=== PATIENT | female | born 1955 | race Caucasian/White ===

== ENCOUNTER 2021-01-17 10:18 | Emergency (ER) | payer MEDICARE, OTHER ==
[~2021-01-17] VITALS: Ht 157.5 cm; Wt 49.0 kg
[2021-01-17] MEDS ORDERED: OXYCODONE-ACET1 EAC3 PO (11:37)
[2021-01-17] MEDS ORDERED: AMOX TR-K CLV1 EAC1 PO (11:37)
[2021-01-17] MEDS ORDERED: BETAMETHASONE D15 G2 TOP (11:37)
[2021-01-17] MEDS ORDERED: VENTOLIN HFA18 GM ×2 (11:37→11:38)
[2021-01-17] MEDS ORDERED: METOPROLOL SUCC50 MG PO (11:37)
[2021-01-17] MEDS ORDERED: LACTULOSE10 GM/151 PO (11:38)
[2021-01-17] MEDS ORDERED: ONDANSETRON ODT8 MG PO (11:38)
[2021-01-17] MEDS ORDERED: PROCHLORPERAZIN10 MG PO (11:39)
--- OUTSIDE RECORDS SUMMARY | 2021-01-17 12:29 | XMS ---
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 E.DRandy VISIT COUNT (12 MO.) 1 [facility] H. 2 [facility] Moreno 1 [facility] TOTAL 5 NOTE: Visits indicate total known visits. ED/UCC VISIT TRACKING (12 MO.) 01/17/2021 10:19 [facility] [place] TYPE: Emergency COMPLAINT: - R SIDE CHEST/ARMPIT PAIN 11/25/2020 17:32 [facility]: Emergency DIAGNOSES: - Local infection of the skin and subcutaneous tissue, unspecified - Wound Infection (Complicated) - Right Chest - Malignant neoplasm of unspecified part of right bronchus or lung - Unspecified open wound of unspecified front wall of thorax without penetration into thoracic cavity, initial encounter - Right Chest Wound - Other injury of unspecified body region, initial encounter 10/12/2020 13:06 [facility] [place] TYPE: Emergency DIAGNOSES: - Malignant neoplasm of unspecified part of right bronchus or lung - Back Pain - Other chest pain - Rib Pain - R side \E\T\E\ back pain 09/26/2020 09:22 [facility] [place] TYPE: Emergency DIAGNOSES: - Other chest pain - Back Pain - Malignant neoplasm of unspecified part of unspecified bronchus or lung 09/12/2020 15:14 [facility] DIAGNOSES: - Breast Mass - Localized swelling, mass and lump, trunk - poss rt arm abscess INPATIENT VISIT TRACKING (12 MO.) [facility] DIAGNOSES: - Unspecified open wound of right front wall of thorax without penetration into thoracic cavity, initial encounter - Unspecified open wound of right front wall of thorax without penetration into thoracic cavity, subsequent encounter - infected chest mass, infected surgical site, fistula into pleural cavity - Bacterial infection, unspecified - Malignant neoplasm of unspecified part of unspecified bronchus or lung - Chronic pulmonary embolism 10/15/2020 11:21 [facility] TYPE: Transplant DIAGNOSES: - Other nonspecific abnormal finding of lung field - Other disorders of lung - Pyothorax with fistula - Other specified counseling - Other fatigue - Chronic obstructive pulmonary disease, unspecified - Localized swelling, mass and lump, trunk - Other general symptoms and signs - Other chest pain - Neoplasm related pain (acute) (chronic) - Encounter for palliative care - Abnormal weight loss [email or web address]
== END 2021-01-17 19:03 | disposition home or self-care (01) ==
LOC: ED 10:18
DX: J86.0 Pyothorax with fistula (principal); C34.90 Malignant neoplasm of unspecified part of unspecified bronchus or lung; Z79.899 Other long term (current) drug therapy; Z20.822 Contact with and (suspected) exposure to COVID-19
CPT/HCPCS: 71045; 71260; 80053; 81001; 83605; 85025; 99284-25; C9803; Q9967; U0003